=== PATIENT | male | born 1975 | race African-American/Black ===

== ENCOUNTER 2017-11-05 16:01 | Emergency (ER) | payer SELFPAY ==
[~2017-11-05] VITALS: Ht 175.3 cm; Wt 63.0 kg
[2017-11-05 18:21] VITALS: BP 123/83
== END 2017-11-05 18:28 | disposition home or self-care (01) ==
LOC: ER 16:01
DX: T65.893A Toxic effect of other specified substances, assault, initial encounter (principal); F17.200 Nicotine dependence, unspecified, uncomplicated; Y92.89 Other specified places as the place of occurrence of the external cause
CPT/HCPCS: 99283; J7030

== ENCOUNTER 2017-11-11 17:13 | Emergency (ER) | payer MEDICAID ==
[~2017-11-11] VITALS: Ht 175.3 cm; Wt 66.0 kg
[2017-11-11] MEDS ORDERED: ACETAMINOPHEN 325MG TABLET ONE (18:38)
[2017-11-11] MEDS ORDERED: ACETAMINOPHEN 325MG TABLET PO ONE (18:45)
[2017-11-11 21:57] VITALS: BP 118/65
== END 2017-11-11 22:00 | disposition home or self-care (01) ==
LOC: ER 18:43
DX: S02.40CA Maxillary fracture, right side, initial encounter for closed fracture (principal); S02.2XXA Fracture of nasal bones, initial encounter for closed fracture; S02.40EA Zygomatic fracture, right side, initial encounter for closed fracture; S02.31XA Fracture of orbital floor, right side, initial encounter for closed fracture; S02.631A Fracture of coronoid process of right mandible, initial encounter for closed fracture; S02.40FA Zygomatic fracture, left side, initial encounter for closed fracture; S05.11XA Contusion of eyeball and orbital tissues, right eye, initial encounter; Y04.2XXA Assault by strike against or bumped into by another person, initial encounter; Y93.89 Activity, other specified; Y92.149 Unspecified place in prison as the place of occurrence of the external cause; R03.0 Elevated blood-pressure reading, without diagnosis of hypertension; J33.8 Other polyp of sinus; J34.1 Cyst and mucocele of nose and nasal sinus; F17.210 Nicotine dependence, cigarettes, uncomplicated
CPT/HCPCS: 70450; 70486; 99284

== ENCOUNTER 2018-01-10 16:49 | Emergency (ER) | payer MEDICAID ==
[~2018-01-10] VITALS: Ht 180.3 cm; Wt 70.0 kg
[2018-01-10] MEDS ORDERED: KETOROLAC 30MG/ML VIAL IV STA (21:53)
[2018-01-10] MEDS ORDERED: MORPHINE SULFATE 4 MG/ML CPJ (NOT FOR IM USE) IV STA (21:53)
[2018-01-10] MEDS ORDERED: ONDANSETRON HCL 4MG/2ML INJ IV STA (21:53)
[2018-01-10] MEDS ORDERED: SODIUM CHLORIDE 0.9% 1,000 ML IV ONE (21:53)
[2018-01-10] MEDS ORDERED: NA PHOS,M-B/NA PHOS,DI-BA ENEMA 118ML PR ONE (22:00)
[2018-01-10] MEDS ORDERED: SORBITOL 70% SOLN 30ML PO ONE (22:00)
[2018-01-11 01:17] VITALS: BP 115/66
== END 2018-01-11 01:18 | disposition home or self-care (01) ==
LOC: ER 16:49
DX: K59.00 Constipation, unspecified (principal); F17.290 Nicotine dependence, other tobacco product, uncomplicated
CPT/HCPCS: 96374; 96375; 99284; 99406; J1885; J2270; J2405; J7030